=== PATIENT | female | born 1945 | race Caucasian/White ===

== ENCOUNTER 2016-08-12 18:57 | Inpatient (IN) | payer OTHER ==
--- NOTE | ~2016-08-12 | HP ---
History And Physical [place] [id number] [facility] [place]. [address] NAME: ANNE GAYLE : 47 STATUS : ADM Claudia PAT#: [id number] AGE: 71 ADM/REG DATE : 08/12/16 MR#: [id number] REPORT SERV DATE: 08/13/16 DICTATED BY: HUAN HARVEY DATE: 08/13/16 REPORT STATUS : Draft TRANSCRIBED BY: MODL DATE: 08/13/16 DATE OF ADMISSION: 08/12/2016 INDICATION FOR ADMISSION: Recurrent falls, inability to stand. HISTORY OF PRESENT ILLNESS: Mrs Gayle is a 71-year-old female, following chronic hemodialysis at [facility], dialyzing by left upper extremity AV graft. She has required hospitalizations in the past due to falls and injury, most recently sustaining a right humerus fracture in 04/2016. She lives alone and apparently continues to have falls at home and fell requiring her son to get her up. She subsequently was evaluated in the emergency room and was unable to stand. CT scan was performed, and she had no acute stroke. Cervical disk disease was noted with bulging at C3-C4, C4-C5, and C5-C6. She previously was seen in the emergency room on 08/10/2016 and had a nondisplaced left wrist fracture and seventh rib fracture. She is on numerous central acting medications including hydrocodone, oxycodone, gabapentin, Requip, and Robaxin. Presently, she was to be evaluated for home health, but she actually may need rehab therapy and/or placement as well as neurologic evaluation for possible cervical myelopathy. PAST MEDICAL HISTORY: 1. End-stage renal disease, dialyzing Sunday, Sunday, Sunday at [facility] by left upper extremity AV fistula. 2. Chronic obstructive pulmonary disease, on home O2. 3. Debilitation with recurrent falls. 4. Type 2 diabetes mellitus. 5. Diabetic neuropathy. 6. Coronary artery disease, status post PCI by Dr. Davis. 7. Hypertension. 8. Right humerus fracture. 9. Degenerative joint disease with chronic pain. 10.Gout. 11.Hyperlipidemia. 12.Anemia. 13.Obesity. SOCIAL HISTORY: The patient is lives alone but son lives nearby. History of former tobacco use, but no use at present. No history of alcohol or illicit drugs. FAMILY HISTORY: Positive for hypertension, coronary artery disease, and diabetes. No end- stage renal disease. HOME MEDICATIONS: Allopurinol, PhosLo, Nexium, Prozac, Neurontin, hydrocodone, Levemir insulin, Humalog insulin, magnesium oxide, Robaxin, midodrine, Remeron, Singulair, omega-3 fatty acid, oxycodone, Requip, Crestor, Demadex, and Atrovent inhaler. ALLERGIES: TO PHENERGAN, REGLAN, MORPHINE, AND ALBUTEROL. History And Physical [address] [address] NAME: ANNE GAYLE : 47 STATUS : ADM Claudia PAT#: [id number] AGE: 71 ADM/REG DATE : 08/12/16 MR#: [id number] REPORT SERV DATE: 08/13/16 DICTATED BY: HUAN HARVEY DATE: 08/13/16 REPORT STATUS : Draft TRANSCRIBED BY: LUCI DATE: 08/13/16 REVIEW OF SYSTEMS: HEENT: No change in visual acuity. No epistaxis. No otic infection. No pharyngitis. PULMONARY: Notes occasional shortness of breath, now having mildly productive cough. No wheezing. CARDIAC: No chest pain. No palpitations. No lower extremity edema. GI: No nausea, vomiting, or melena. : No gross hematuria. MUSCULOSKELETAL: Pain in both upper extremities, both lower extremities, and ribs. INTEGUMENT: No rash. No itching. NEUROLOGIC: No seizure activity. No lateralizing weakness. Presently, unable to stand and walk. Remainder of 12-point review of systems is negative. PHYSICAL EXAMINATION: VITAL SIGNS: Blood pressure 155/68, temperature 99.1, pulse 71, respiratory rate 19. GENERAL: Obese female, somewhat lethargic, but responding to questions appropriately. HEENT: Eyes, no scleral icterus. Pupils equal, reactive to light. Extraocular movement intact. Nares patent. No discharge. Throat, no injection. Mucous membranes moist. NECK: No thyromegaly, masses, or bruits. CHEST/LUNGS: Late crackles posteriorly. No wheezing. No dullness to percussion. CARDIAC: Regular rate and rhythm. 1/6 systolic ejection murmur. ABDOMEN: Obese, normoactive bowel sounds, nontender. No hepatosplenomegaly. BREAST/PELVIC/RECTAL: Not performed. EXTREMITIES: No significant lower extremity edema. No calf tenderness. Left upper extremity AV graft with good bruit and thrill. Left forearm cast noted. DERMIS: No rash. No skin lesions. NEUROLOGIC: Cranial nerves appear intact. No lateralizing weakness. MUSCULOSKELETAL: No deformity. IMPRESSION: 1. Recurrent falls, possibly medication effect versus cervical myelopathy. 2. End-stage renal disease, dialyzing Sunday, Sunday, and Sunday [facility] by left upper extremity AV fistula. 3. Chronic obstructive pulmonary disease, on home O2. 4. Obstructive sleep apnea, noncompliant with CPAP. 5. Type 2 diabetes mellitus. 6. Coronary artery disease with remote PCI by Dr. Davis. 7. Hypertension. 8. Left humerus fracture, currently with cast. 9. Degenerative joint disease for chronic pain. 10.Gout. 11.Neuropathy. 12.Hyperlipidemia. 13.Anemia. PLAN: 1. Decreased central acting medicines including Neurontin, Robaxin, and oxycodone. History And Physical [address] [address] NAME: ANNE GAYLE : 47 STATUS : ADM Claudia PAT#: [id number] AGE: 71 ADM/REG DATE : 08/12/16 MR#: [id number] REPORT SERV DATE: 08/13/16 DICTATED BY: HUAN HARVEY DATE: 08/13/16 REPORT STATUS : Draft TRANSCRIBED BY: LUCI DATE: 08/13/16 2. Hemodialysis on 08/14/2016. 3. 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 4. Consider neuro evaluation for possible cervical myelopathy. CG/JERMANL Huan Harvey M.D. / [id number] CC: Elly Dougherty JULIE H.
--- NOTE | ~2016-08-12 | CN ---
Consultation Report [facility] [address] [place]. [address] NAME: ANNE GAYLE : 47 STATUS : ADM Claudia PAT#: [id number] AGE: 71 ADM/REG DATE : 08/12/16 MR#: [id number] REPORT SERV DATE: 08/17/16 DICTATED BY: GALLO BLAND DATE: 08/16/16 REPORT STATUS : Draft TRANSCRIBED BY: MODL DATE: 08/16/16 INFECTIOUS DISEASE CONSULT DATE OF CONSULTATION: 08/16/2016 REASON FOR CONSULTATION: Fevers. HISTORY OF PRESENT ILLNESS: This is a 71-year-old female with end-stage renal disease, who has been on dialysis for about three years she says. She is dialyzed via a left upper extremity AV graft. The patient has had problems since April with recurrent falls and suffered a right humerus fracture in April after a fall. She says she feels weak and has episodic jerking type movements and is just unsteady. She was admitted again to [facility] on 08/12/2016 after being seen on 08/10/2016 after a fall at home and undergoing x-rays. However, she just continued to do poorly at home and was admitted through the ER. She also complains of some low back pain. The patient has had an extensive radiographic evaluation as outlined below. She initially had no fever and was not complaining of outpatient fevers or chills and her white blood cell count on admission was normal. About 48 hours after presenting to the emergency department, she spiked a fever to 102.8. Blood cultures were obtained and she was started on vancomycin. Those blood cultures remain negative 48 hours later. She had a maximum temperature yesterday of 99.6 and this morning of 100.1. In addition to just feeling fatigued, she does note a bit of a runny nose and an occasional cough. She has left-sided chest pain where she has had a rib fracture. She also notes episodic headache since her recent falls. She denies any sore throat. No nausea, vomiting, or diarrhea. Denies any problems with her IVs in her arms here in the hospital. No problems with her AV graft. The patient does still void a small amount of urine every day and says she does have some burning when she does, but that is no different than usual for her. PAST MEDICAL HISTORY: In addition to the above is notable for COPD, on home oxygen; diabetes with neuropathy; coronary artery disease; hypertension; gout; hyperlipidemia; osteoarthritis; and obesity. ALLERGIES OR INTOLERANCE: Include Phenergan, Reglan, morphine, and albuterol. PRESENT MEDICATIONS: In addition to vancomycin include Proventil, allopurinol, Lipitor, PhosLo, Prozac, Neurontin, Levemir, magnesium oxide, ProAmatine, Remeron, Asmanex, Singulair, Protonix, Promega capsules, Requip, Demadex. SOCIAL HISTORY: The patient lives alone. Her grandson is here in the room with her. No pets. . Past tobacco use, not now. Nondrinker. FAMILY HISTORY: Notable for hypertension, coronary artery disease, diabetes. REVIEW OF SYSTEMS: Consultation Report [address] [place]. [address] NAME: ANNE GAYLE : 47 STATUS : ADM Claudia PAT#: [id number] AGE: 71 ADM/REG DATE : 08/12/16 MR#: [id number] REPORT SERV DATE: 08/17/16 DICTATED BY: GALLO BLAND DATE: 08/16/16 REPORT STATUS : Draft TRANSCRIBED BY: LUCI DATE: 08/16/16 As outlined above. Otherwise, negative. PHYSICAL EXAMINATION: GENERAL: She weighs 106 kg. Presently afebrile. Blood pressure 195/79. Her pulse has ranged from 69 to 116. Respiratory rate is 18. GENERAL: She is alert, appropriate, in no acute distress. HEAD AND NECK: Oral cavity is clear. There is no thrush. Pharynx is without erythema. NECK: Supple. No adenopathy. LUNGS: Clear to auscultation anteriorly and laterally. CARDIAC: Regular rate and rhythm. Normal S1, S2. No murmur, gallop, or rub. ABDOMEN: Obese, soft. Bowel sound is reduced. Nontender. No masses appreciated. EXTREMITIES: The patient has a peripheral IV in the right forearm without phlebitis. Left upper arm has the AV graft covered by dressing, but no surrounding erythema. She does have ecchymosis of her left shoulder area. The left wrist and hand are in a cast. Legs show trace edema. Otherwise, unremarkable. LABORATORY STUDIES: White blood cell count 6.6, hemoglobin 9.2, platelets 116. She does have chronic thrombocytopenia. Albumin 2.3, alkaline phosphatase 230. Other liver function tests are normal. On 08/15/2016, urinalysis showed moderate leukocyte esterase, greater than 182 white blood cells many white blood cell clumps. Urine culture is pending. RADIOGRAPHIC STUDIES: 08/10/2016, left wrist x-ray showed nondisplaced fracture of the radial styloid. 08/10/2016, left hip x-ray negative, as was a pelvis x-ray. Rib series that day did show a nondisplaced fracture of the left anterolateral seventh rib. On admission, 08/12/2016, the patient had a CT scan without contrast of her brain, chest, abdomen, and pelvis. This showed no acute findings. The chest exam did reveal some increasing fibrosis or atelectasis changes in both lung bases compared to the April 2016 CT scan. Chest x-ray was repeated on 08/14/2016 and that is reviewed and there is some mild venous congestion along with some left perihilar and suprahilar atelectasis and possible atelectasis or even infiltrate in the right lung base. IMPRESSION: Etiology of the patient's fevers is unclear. Her maximum temperature in the last 24 hours is 100.1 after the spike to 102.8 on 08/14/2016. Of note, fevers were not present on admission, and she has had a normal white blood cell count and appears nontoxic. She does have a mild cough and some rhinorrhea and certainly may have a viral infection. I do not think she has influenza. Urinalysis shows pyuria, but the significance of this is always questionable in this situation in a patient on chronic dialysis. I do not think she has a bacterial pneumonia. She may be splinting some from the rib fracture pain, but there is not much to suggest pneumonia on exam or imaging studies. Her AV graft area looks fine on her inner left arm. PLAN: Consultation Report [address] [place]. [address] NAME: ANNE GAYLE : 47 STATUS : ADM Claudia PAT#: [id number] AGE: 71 ADM/REG DATE : 08/12/16 MR#: [id number] REPORT SERV DATE: 08/17/16 DICTATED BY: GALLO BLAND DATE: 08/16/16 REPORT STATUS : Draft TRANSCRIBED BY: MODL DATE: 08/16/16 1. Given the negative blood cultures at 48 hours, I will stop antibiotics, although she did get a dose of vancomycin already today. 2. We will follow her temperature curve overnight and reassess in the morning. 3. Check procalcitonin in the morning. 4. If her fevers continue, may go ahead and initiate antibiotics for what may be a positive urine culture, although again I am doubtful if that is the source. /MODL Gallo Bland M.D. / [id number] CC: Elly Dougherty M.D. Nathan Chamberlain, M.D.
--- NOTE | ~2016-08-12 | DS ---
Discharge Summary [facility] [address] [place]. [address] NAME: ANNE GAYLE : 47 STATUS : DIS IN PAT#: [id number] AGE: 71 ADM/REG DATE : 08/12/16 MR#: [id number] REPORT SERV DATE: 09/01/16 DICTATED BY: HUAN HARVEY DATE: 08/31/16 REPORT STATUS : Draft TRANSCRIBED BY: MODTorsten DATE: 08/31/16 Data Collection from hospitalization DISCHARGE DIAGNOSES: 1. Pneumonia. 2. Fever. 3. End-stage renal disease. 4. Diabetes mellitus. 5. Anemia. 6. Chronic obstructive pulmonary disease. 7. Decubitus. 8. Hypertension. 9. Diabetic neuropathy. 10.Coronary artery disease. 11.Obesity. 12.Hyperlipidemia. 13.Gout. 14.Degenerative joint disease with chronic pain. 15.Former tobacco use. CONSULTATIONS: Dr. Boyd Bland, Dr. Ernie Antonio. PROCEDURES PERFORMED: 1. CT scan of the brain without contrast, 08/12/2016. 2. CT scan of the cervical spine without contrast, 08/12/2016. 3. CT scan of the chest without contrast and CT scan of the abdomen and pelvis without contrast, 08/12/2016. DISCHARGE MEDICATIONS: Zyloprim 100 mg daily, PhosLo 1334 mg with meals, Prozac 20 mg twice a day, Neurontin 600 mg three times a day, Levemir 28 units subcutaneously twice a day, NovoLog injection insulin 28 units subcutaneously before breakfast, NovoLog injection insulin as instructed, Mag-Ox 400 mg every morning, Remeron 15 mg at bedtime, Singulair 10 mg at bedtime, fish oil 2000 mg twice a day, Nexium 40 mg every morning, Requip 0.5 mg at bedtime, Demadex 100 mg twice a day, ProAmatine 5 mg three times a day, Levemir 20 units subcutaneously at bedtime, Endocet one tablet twice a day as needed, Crestor 10 mg at bedtime, Robaxin 500 mg every eight hours as needed, DuoNeb every six hours as instructed. CONDITION AT DISCHARGE: Stable. DISPOSITION: The patient was discharged to [facility] on a diabetic/renal diet with activities as instructed. HOSPITAL COURSE: This is a 71-year-old female, who undergoes hemodialysis via a left upper extremity AV graft. She had required hospitalizations in the past due to falls and injury, most recently sustaining a right humerus fracture in April of 2016. She lives alone and apparently continued to have falls at home and fell requiring her son to get her up. She was subsequently evaluated in the emergency room and was unable to stand. CT scan of the brain without contrast revealed no acute stroke. A CT scan of the cervical spine without Discharge Summary [address] [place]. [address] NAME: ANNE GAYLE : 47 STATUS : DIS IN PAT#: [id number] AGE: 71 ADM/REG DATE : 08/12/16 MR#: [id number] REPORT SERV DATE: 09/01/16 DICTATED BY: HUAN HARVEY DATE: 08/31/16 REPORT STATUS : Draft TRANSCRIBED BY: LUCI DATE: 08/31/[address] scan of the chest without contrast as well as a CT scan of the abdomen and pelvis without contrast were performed. She was found to have bulging at C3-4, C4-C5, and C5-C6. She was previously seen in the emergency room on 08/10/2016 and had a nondisplaced left wrist fracture and seventh rib fracture. She is on numerous central acting medications, including hydrocodone, oxycodone, gabapentin, Requip, and Robaxin. Presently, she was to be evaluated for home health, but it was felt that she may need rehab therapy and/or placement as well as neurologic evaluation for possible cervical myelopathy. She was admitted to the hospital at this time for further evaluation and treatment. Upon admission, her central acting medications were going to be decreased. Hemodialysis therapy was going to be performed. The following day, hemodialysis therapy was performed. She was in no acute distress. O2 saturation was 93% on 2 L. Her Neurontin dose was decreased. Supportive care continued. Hydrocodone and Robaxin were held. She underwent diabetes education. She was evaluated by Physical Therapy. On 08/15/2016, she was seen by Dr. Ernie Antonio regarding her recent falls and possible cervical myelopathy. The patient denied any neck pain at this time. She denied any numbness or tingling in the upper extremities. She does have a history of low back pain. CT scan had revealed some degenerative changes with [id number] stenosis. It was felt that she could have myelopathy, but overall, she was not classic in terms of symptomatology. It was felt that the best plan maybe to have physical therapy see her and then we would see how that goes and then discuss potentially an MRI as needed. The patient remained on vancomycin for now. Supportive care continued. On the , cultures were negative thus far. Hemodialysis therapy was performed. Vancomycin was continued. She was seen by Dr. Boyd Bland regarding fevers. Her blood cultures had remained negative at 48 hours. Earlier that morning, she had a T-max of 100.1. In addition to feeling fatigued, she did have a bit of a runny nose and an occasional cough. On 08/10/2016, a left wrist x-ray had shown nondisplaced fracture of the radial styloid. She had also been found to have a nondisplaced fracture of the left anterolateral seventh rib. The etiology of her fever was unclear. She has had a fever spike of 102.8 on 08/14/2016. Her maximum temperature in the last 24 hours was 100.1. She did not believe she had influenza. She did not think that she had bacterial pneumonia. The AV graft area looked fine on the inner left arm. Vancomycin was going to be stopped. She has had negative blood cultures at 48 hours. We would follow her temperature curve overnight and reassess the following morning. Procalcitonin level was going to be obtained. On the , her T-max was 100.3. Procalcitonin level was 14.99. She said she felt a little better. She did have an increased productive cough. Repeat chest x-ray was going to be performed. Sputum Gram stain and culture would be obtained. Cefepime was started. She was still receiving vancomycin. On 08/18/2016, hemodialysis therapy was performed. Blood cultures remained negative. She was afebrile. White count was 6.7. Cefepime was continued. Her temperature curve was decreasing. Next day, procalcitonin level was 15.8. She remained afebrile. It was felt that her fevers had resolved. She seemed to have responded to cefepime, this was continued. Over the next couple of days, she continued to progress. O2 saturation was 99% on 3 L. She complained of some episodes of jerking-like movements. She seemed to be breathing better. Her cough had resolved. Discharge planning was performed. Hemodialysis therapy continued. On 08/22/2016, she remained afebrile. Procalcitonin level from the day previously was 10.85. She was feeling better overall. She did have some weakness. She had improved Discharge Summary [address] [place]. [address] NAME: ANNE GAYLE : 47 STATUS : DIS IN PAT#: [id number] AGE: 71 ADM/REG DATE : 08/12/16 MR#: [id number] REPORT SERV DATE: 09/01/16 DICTATED BY: HUAN HARVEY DATE: 08/31/16 REPORT STATUS : Draft TRANSCRIBED BY: LUCI DATE: 08/31/16 clinically. Discharge instructions were given. Due to her improved and stable condition, she was discharged to [facility] with the above-stated instructions. Information collected by: Renate Connor I submit the above information as my discharge summary. TG/LUCI Huan Harvey M.D. / [id number] CC: Elly Dougherty M.D. Hal Hill, M.D. [facility] Ernie Antonio II, M.D.
--- NOTE | ~2016-08-12 | CN ---
Consultation Report [address] [place]. [address] NAME: ANNE GAYLE : 47 STATUS : ADM Claudia PAT#: [id number] AGE: 71 ADM/REG DATE : 08/12/16 MR#: [id number] REPORT SERV DATE: 08/16/16 DICTATED BY: BETH ANTONIO II DATE: 08/15/16 REPORT STATUS : Draft TRANSCRIBED BY: LUCI DATE: 08/15/16 CONSULTATION DATE OF CONSULTATION: 08/15/2016 REASON FOR CONSULTATION: Recent falls. HISTORY OF PRESENT ILLNESS: A friendly female, who I am asked to see by Dr. Jeronimo for possible cervical myelopathy. The patient denies any neck pain but does report some falling. She denies any numbness and tingling in the upper extremities. She does have a positive history for low back pain. PAST MEDICAL HISTORY: Hypertension, dialysis, kidney disease, uncontrolled diabetes. REVIEW OF SYSTEMS: Please see the ER triage sheet dated 08/12/2016. I have reviewed it and agree with it. MEDICATIONS: Please see the MAR. PHYSICAL EXAMINATION: GENERAL: Reveals a female, in no acute distress. She is awake, alert, and oriented. NECK: Supple. CHEST: Reveals no stridor on inspiration or expiration. CARDIOVASCULAR: Regular rate and rhythm when I palpate the radial pulse. ABDOMEN: Obese. NEUROLOGIC: She has a negative Kortney's sign. She has no hyperreflexia. Her neck range of motion is good. Neurologically, she is 4/5 in the upper and lower extremities. IMAGING: CT scan reveals some degenerative changes with cabh-hj-mcjfygng stenosis. IMPRESSION AND PLAN: History of recent falls, etiology uncertain. She could have myelopathy but overall, she is not classic in terms of symptomatology. I think the best plan is to have Physical therapy see her and then, we will see how that goes and then discuss potentially an MRI if needed. ALANIS/LUCI Beth Antonio II, M.D. / [id number] Consultation Report [address] [place]. [address] NAME: ANNE GAYLE : 47 STATUS : ADM Claudia PAT#: [id number] AGE: 71 ADM/REG DATE : 08/12/16 MR#: [id number] REPORT SERV DATE: 08/16/16 DICTATED BY: BETH ANTONIO II DATE: 08/15/16 REPORT STATUS : Draft TRANSCRIBED BY: MODL DATE: 08/15/16 CC: Elly Douhgerty M.D.
[~2016-08-12 18:57] MED LIST: ATROVENT HFA17 MCG INH; BENTYL20 PO; CALCIUM CARBONATE; COREG25 PO; COREG3 PO; CRESTOR; CRESTOR20 MG PO; CRESTOR40 MG PO; DEMA100 PO; DITRO5 PO; DITROXL5 PO; ETODOLAC400 MG OR; FLONASE NAS; FLOVENT44 INH; HUMALOG; HUMALOG SC; HUMALOGPEN SC; Humalog Inj SC; KAYEXUD PO; KDUR10 PO; L40 PO; L80 PO; LEVEMFLXPN SC; LEVEMIR SC; LISINOPRIL40 MG PO; LOFIB160 PO; LOFIBRA160 MG PO; LORT7 PO; LOVAZA1 GM PO; MAG OXIDE; MAGOX4 PO; MCZ125 PO; METHOC500B PO; MIX; NEBULIZER SOLUTION INH; NEUR300 PO; NEUR600 PO; NEXIUM40 PO; NORCO1 TA2 PO; OTC MUSCLE RUB TOP; PCET PO; PERCOCET1 TA4 PO; PHOSLO PO; PLAVIX; PLAVIX PO; PROLIA60 MG/1 ML SC; PROZAC PO; QVAR 80 MCG80 MCG INH; REM15 PO; REQUIP5 PO; SINGULAIR1 PO; SODBICAR10 PO; SONATA10 MG PO; TRILIPIX135 MG PO; VICODIN ES1 TAB PO; Z100 PO; ZANAFLEX2 MG PO; ZANTAC300 MG PO; ZITHROMAX500 MG PO; ZOCOR40 PO; [UNRECOGNIZED DRUG - OTHER]; [UNRECOGNIZED DRUG - REMARK]; [UNRECOGNIZED DRUG - REMARK] TOP
[2016-08-12 20:32] LABS: BASOPHILS 0.2 %; BASOPHILS ABSOLUTE 0.01 10/3/uL (0.0-0.16); EOSINOPHILS 0.4 %; EOSINOPHILS ABSOLUTE 0.02 10/3/uL (0.0-0.53); HEMATOCRIT 30.1 % (36.0-48.0); IMMATURE GRANULOCYTES 0.2 %; IMMATURE GRANULOCYTES ABSOLUTE 0.01 10/3/uL (0.0-0.11); LYMPHOCYTES 21.2 %; MANUAL DIFF NO %; MEAN CORPUS HGB CONC 33.2 g/dL (32.0-36.0); MEAN CORPUSCULAR HEMOGLOB 35.1 pg (26.0-34.0); MEAN CORPUSCULAR VOLUME 105.6 fL (80-100); MEAN PLATELET VOLUME 10.6 fL (9.2-13.0); MONOCYTES 5.7 %; MONOCYTES ABSOLUTE 0.27 10/3/uL (0.21-1.20); NEUTROPHILS 72.3 %; NEUTROPHILS ABSOLUTE 3.41 10/3/uL (2.02-8.40); PLATELET COUNT 117 10/3/uL (150-400); RED CELL COUNT 2.85 10/6/uL (4.0-5.6); WHITE BLOOD CELLS 4.7 10/3/uL (4.5-10.5)
[2016-08-12 20:46] LABS: A/G RATIO 0.8 (0.7-1.9); ALBUMIN 2.8 G/DL (3.5-5.0); CHLORIDE, SERUM 92 MMOL/L (96-112); CO2 (CARBON DIOXIDE) 28 MMOL/L (24-34); GLOBULIN 3.7 G/DL (2.5-4.1); POTASSIUM, SERUM 4.8 MMOL/L (3.5-5.3); SGOT(AST) 7 U/L (5-40); SGPT(ALT) 14 U/L (5-65); SODIUM, SERUM 131 MMOL/L (135-148); TOTAL BILIRUBIN 0.4 MG/DL (0-1.2); TOTAL PROTEIN 6.5 G/DL (6.0-8.5)
[2016-08-12 20:47] LABS: ALKALINE PHOSPHATASE 230 U/L (45-117); BUN (BLOOD UREA NITROGEN) 38 MG/DL (6-23); CREATININE 5.26 MG/DL (0.55-1.02); GFR AFRICAN AMERICAN 9 ML/MIN (>=60); GFR NON AFRICAN AMERICAN 8 ML/MIN (>=60); GLUCOSE, SERUM 667 MG/DL (60-99)
[2016-08-12] MEDS ORDERED: ENDOCET1 TAB PO (21:09)
[2016-08-12] MEDS ORDERED: Z100 PO (21:10)
[2016-08-12] MEDS ORDERED: FISH-EPA1000 MG PO (21:11)
[2016-08-12] MEDS ORDERED: CRESTOR10 PO (21:11)
[2016-08-12] MEDS ORDERED: MAGOX4 PO ×2 (21:11→21:20)
[2016-08-12] MEDS ORDERED: PHOSLO PO (21:12)
[2016-08-12] MEDS ORDERED: NEXIUM40 PO (21:12)
[2016-08-12] MEDS ORDERED: REM15 PO (21:12)
[2016-08-12] MEDS ORDERED: METHOC500B PO (21:13)
[2016-08-12] MEDS ORDERED: NEUR600 PO (21:13)
[2016-08-12] MEDS ORDERED: PROZAC PO (21:14)
[2016-08-12] MEDS ORDERED: SINGULAIR1 PO (21:14)
[2016-08-12] MEDS ORDERED: PROAMAT5 PO (21:14)
[2016-08-12] MEDS ORDERED: REQUIP5 PO (21:14)
[2016-08-12] MEDS ORDERED: LEVEMIR SC (21:15)
[2016-08-12] MEDS ORDERED: HUMALOG SC (21:16)
[2016-08-12] MEDS ORDERED: NORCO1 TA2 PO (21:19)
[2016-08-12] MEDS ORDERED: DEMA100 PO (21:20)
[2016-08-12] MEDS ORDERED: NEBULIZER SOLN INH (21:22)
[2016-08-12] MEDS ORDERED: INHALER INH (21:22)
[2016-08-13 05:24] LABS: BASOPHILS 0.2 %; BASOPHILS ABSOLUTE 0.01 10/3/uL (0.0-0.16); EOSINOPHILS 0.9 %; EOSINOPHILS ABSOLUTE 0.05 10/3/uL (0.0-0.53); HEMATOCRIT 29.1 % (36.0-48.0); HEMOGLOBIN 9.9 g/dL (12.0-16.0); IMMATURE GRANULOCYTES 0.3 %; IMMATURE GRANULOCYTES ABSOLUTE 0.02 10/3/uL (0.0-0.11); LYMPHOCYTES 17.5 %; LYMPHOCYTES ABSOLUTE 1.02 10/3/uL (0.67-4.30); MANUAL DIFF NO %; MEAN CORPUSCULAR HEMOGLOB 35.6 pg (26.0-34.0); MEAN CORPUSCULAR VOLUME 104.7 fL (80-100); MEAN PLATELET VOLUME 10.5 fL (9.2-13.0); MONOCYTES 4.6 %; MONOCYTES ABSOLUTE 0.27 10/3/uL (0.21-1.20); NEUTROPHILS 76.5 %; NEUTROPHILS ABSOLUTE 4.46 10/3/uL (2.02-8.40); PLATELET COUNT 114 10/3/uL (150-400); RBC DISTRIBUTION WIDTH 13.9 % (12.0-16.0); RED CELL COUNT 2.78 10/6/uL (4.0-5.6); WHITE BLOOD CELLS 5.8 10/3/uL (4.5-10.5)
[2016-08-13 05:40] LABS: ALBUMIN 2.7 G/DL (3.5-5.0); CALCIUM, SERUM 8.4 MG/DL (8.5-10.4); CHLORIDE, SERUM 94 MMOL/L (96-112); CO2 (CARBON DIOXIDE) 25 MMOL/L (24-34); CREATININE 5.54 MG/DL (0.55-1.02); GFR AFRICAN AMERICAN 8 ML/MIN (>=60); GFR NON AFRICAN AMERICAN 7 ML/MIN (>=60); PHOSPHORUS, SERUM 3.8 MG/DL (2.5-4.5); POTASSIUM, SERUM 4.2 MMOL/L (3.5-5.3); SODIUM, SERUM 133 MMOL/L (135-148)
[2016-08-13 05:43] LABS: BUN (BLOOD UREA NITROGEN) 42 MG/DL (6-23)
[2016-08-13 05:44] LABS: GLUCOSE, SERUM 381 MG/DL (60-99)
[2016-08-14 04:33] LABS: BASOPHILS 0.2 %; BASOPHILS ABSOLUTE 0.01 10/3/uL (0.0-0.16); EOSINOPHILS 1.5 %; EOSINOPHILS ABSOLUTE 0.09 10/3/uL (0.0-0.53); HEMATOCRIT 29.9 % (36.0-48.0); IMMATURE GRANULOCYTES 0.3 %; IMMATURE GRANULOCYTES ABSOLUTE 0.02 10/3/uL (0.0-0.11); LYMPHOCYTES 20.7 %; LYMPHOCYTES ABSOLUTE 1.22 10/3/uL (0.67-4.30); MEAN CORPUS HGB CONC 33.4 g/dL (32.0-36.0); MEAN CORPUSCULAR VOLUME 104.5 fL (80-100); MEAN PLATELET VOLUME 10.9 fL (9.2-13.0); MONOCYTES 6.8 %; NEUTROPHILS 70.5 %; NEUTROPHILS ABSOLUTE 4.15 10/3/uL (2.02-8.40); PLATELET COUNT 117 10/3/uL (150-400); RBC DISTRIBUTION WIDTH 13.9 % (12.0-16.0); RED CELL COUNT 2.86 10/6/uL (4.0-5.6); WHITE BLOOD CELLS 5.9 10/3/uL (4.5-10.5)
[2016-08-14 04:41] LABS: MANUAL DIFF NO %
[2016-08-14 04:48] LABS: ALBUMIN 2.6 G/DL (3.5-5.0); BUN (BLOOD UREA NITROGEN) 54 MG/DL (6-23); CALCIUM, SERUM 8.9 MG/DL (8.5-10.4); CHLORIDE, SERUM 93 MMOL/L (96-112); CO2 (CARBON DIOXIDE) 24 MMOL/L (24-34); CREATININE 6.61 MG/DL (0.55-1.02); GFR AFRICAN AMERICAN 7 ML/MIN (>=60); GFR NON AFRICAN AMERICAN 6 ML/MIN (>=60); GLUCOSE, SERUM 134 MG/DL (60-99); SODIUM, SERUM 131 MMOL/L (135-148)
[2016-08-15 17:18] LABS: ASCORBIC ACID (UR NOT ORDER) NEG (NEG); BILIRUBIN, URINE NEGATIVE (NEG); KETONE, URINE TRACE MG/DL (NEG); LEUKOCYTE ESTERASE(NOT OR MOD (NEG)
[2016-08-15 17:21] LABS: WBC (NOT ORDERED) (RFLEX) > 182 (0-5)
[2016-08-16 04:03] LABS: BASOPHILS 0.2 %; BASOPHILS ABSOLUTE 0.01 10/3/uL (0.0-0.16); EOSINOPHILS 1.4 %; EOSINOPHILS ABSOLUTE 0.09 10/3/uL (0.0-0.53); HEMATOCRIT 27.3 % (36.0-48.0); HEMOGLOBIN 9.2 g/dL (12.0-16.0); LYMPHOCYTES 17.5 %; LYMPHOCYTES ABSOLUTE 1.15 10/3/uL (0.67-4.30); MANUAL DIFF NO %; MEAN CORPUS HGB CONC 33.7 g/dL (32.0-36.0); MEAN CORPUSCULAR HEMOGLOB 34.8 pg (26.0-34.0); MEAN CORPUSCULAR VOLUME 103.4 fL (80-100); MONOCYTES 7.6 %; NEUTROPHILS 73.3 %; NEUTROPHILS ABSOLUTE 4.82 10/3/uL (2.02-8.40); PLATELET COUNT 116 10/3/uL (150-400); RBC DISTRIBUTION WIDTH 13.8 % (12.0-16.0); RED CELL COUNT 2.64 10/6/uL (4.0-5.6); WHITE BLOOD CELLS 6.6 10/3/uL (4.5-10.5)
[2016-08-16 04:16] LABS: ALBUMIN 2.3 G/DL (3.5-5.0); BUN (BLOOD UREA NITROGEN) 52 MG/DL (6-23); CALCIUM, SERUM 8.6 MG/DL (8.5-10.4); CHLORIDE, SERUM 95 MMOL/L (96-112); CO2 (CARBON DIOXIDE) 27 MMOL/L (24-34); GFR AFRICAN AMERICAN 7 ML/MIN (>=60); GFR NON AFRICAN AMERICAN 6 ML/MIN (>=60); PHOSPHORUS, SERUM 4.1 MG/DL (2.5-4.5); POTASSIUM, SERUM 4.4 MMOL/L (3.5-5.3); SODIUM, SERUM 132 MMOL/L (135-148)
[2016-08-16 04:22] LABS: GLUCOSE, SERUM 238 MG/DL (60-99)
[2016-08-18 08:23] LABS: BASOPHILS 0.1 %; BASOPHILS ABSOLUTE 0.01 10/3/uL (0.0-0.16); EOSINOPHILS 1.2 %; EOSINOPHILS ABSOLUTE 0.08 10/3/uL (0.0-0.53); HEMATOCRIT 27.7 % (36.0-48.0); HEMOGLOBIN 9.2 g/dL (12.0-16.0); IMMATURE GRANULOCYTES 0.6 %; IMMATURE GRANULOCYTES ABSOLUTE 0.04 10/3/uL (0.0-0.11); LYMPHOCYTES 17.4 %; LYMPHOCYTES ABSOLUTE 1.17 10/3/uL (0.67-4.30); MEAN CORPUS HGB CONC 33.2 g/dL (32.0-36.0); MEAN CORPUSCULAR HEMOGLOB 34.5 pg (26.0-34.0); MEAN CORPUSCULAR VOLUME 103.7 fL (80-100); MEAN PLATELET VOLUME 10.2 fL (9.2-13.0); MONOCYTES ABSOLUTE 0.54 10/3/uL (0.21-1.20); NEUTROPHILS 72.7 %; NEUTROPHILS ABSOLUTE 4.87 10/3/uL (2.02-8.40); PLATELET COUNT 136 10/3/uL (150-400); RBC DISTRIBUTION WIDTH 13.4 % (12.0-16.0); RED CELL COUNT 2.67 10/6/uL (4.0-5.6); WHITE BLOOD CELLS 6.7 10/3/uL (4.5-10.5)
[2016-08-18 08:24] LABS: MANUAL DIFF NO %
[2016-08-18 08:35] LABS: BUN (BLOOD UREA NITROGEN) 49 MG/DL (6-23); CALCIUM, SERUM 8.9 MG/DL (8.5-10.4); CHLORIDE, SERUM 98 MMOL/L (96-112); CO2 (CARBON DIOXIDE) 25 MMOL/L (24-34); GFR AFRICAN AMERICAN 8 ML/MIN (>=60); GFR NON AFRICAN AMERICAN 7 ML/MIN (>=60); GLUCOSE, SERUM 186 MG/DL (60-99); PHOSPHORUS, SERUM 3.6 MG/DL (2.5-4.5); POTASSIUM, SERUM 4.1 MMOL/L (3.5-5.3); SODIUM, SERUM 134 MMOL/L (135-148)
[2016-08-21 06:24] LABS: ALBUMIN 1.9 G/DL (3.5-5.0); BASOPHILS 0.2 %; BASOPHILS ABSOLUTE 0.01 10/3/uL (0.0-0.16); BUN (BLOOD UREA NITROGEN) 61 MG/DL (6-23); CALCIUM, SERUM 9.3 MG/DL (8.5-10.4); CHLORIDE, SERUM 90 MMOL/L (96-112); CO2 (CARBON DIOXIDE) 23 MMOL/L (24-34); CREATININE 6.49 MG/DL (0.55-1.02); EOSINOPHILS 1.9 %; EOSINOPHILS ABSOLUTE 0.11 10/3/uL (0.0-0.53); GFR AFRICAN AMERICAN 7 ML/MIN (>=60); GFR NON AFRICAN AMERICAN 6 ML/MIN (>=60); GLUCOSE, SERUM 187 MG/DL (60-99); HEMATOCRIT 27.3 % (36.0-48.0); HEMOGLOBIN 8.9 g/dL (12.0-16.0); IMMATURE GRANULOCYTES 1.9 %; IMMATURE GRANULOCYTES ABSOLUTE 0.11 10/3/uL (0.0-0.11); LYMPHOCYTES 24.8 %; LYMPHOCYTES ABSOLUTE 1.43 10/3/uL (0.67-4.30); MEAN CORPUS HGB CONC 32.6 g/dL (32.0-36.0); MEAN CORPUSCULAR HEMOGLOB 33.5 pg (26.0-34.0); MEAN CORPUSCULAR VOLUME 102.6 fL (80-100); MONOCYTES 7.1 %; MONOCYTES ABSOLUTE 0.41 10/3/uL (0.21-1.20); NEUTROPHILS 64.1 %; PHOSPHORUS, SERUM 3.5 MG/DL (2.5-4.5); PLATELET COUNT 154 10/3/uL (150-400); POTASSIUM, SERUM 4.5 MMOL/L (3.5-5.3); RBC DISTRIBUTION WIDTH 13.5 % (12.0-16.0); RED CELL COUNT 2.66 10/6/uL (4.0-5.6); SODIUM, SERUM 127 MMOL/L (135-148); WHITE BLOOD CELLS 5.8 10/3/uL (4.5-10.5)
[2016-08-21 06:25] LABS: MANUAL DIFF NO %
[2016-08-21 10:45] LABS: PROCALCITONIN 10.85 ng/mL (<0.5)
[2016-08-22 05:27] LABS: HEMATOCRIT 26.3 % (36.0-48.0); HEMOGLOBIN 8.6 g/dL (12.0-16.0); MANUAL DIFF YES %; MEAN CORPUS HGB CONC 32.7 g/dL (32.0-36.0); MEAN PLATELET VOLUME 10.2 fL (9.2-13.0); PLATELET COUNT 175 10/3/uL (150-400); RBC DISTRIBUTION WIDTH 13.5 % (12.0-16.0); RED CELL COUNT 2.53 10/6/uL (4.0-5.6); WHITE BLOOD CELLS 5.7 10/3/uL (4.5-10.5)
[2016-08-22 05:45] LABS: ALBUMIN 2.2 G/DL (3.5-5.0); CALCIUM, SERUM 8.9 MG/DL (8.5-10.4); GFR AFRICAN AMERICAN 12 ML/MIN (>=60); GFR NON AFRICAN AMERICAN 10 ML/MIN (>=60); GLUCOSE, SERUM 202 MG/DL (60-99); PHOSPHORUS, SERUM 2.7 MG/DL (2.5-4.5)
[2016-08-22 05:53] LABS: BUN (BLOOD UREA NITROGEN) 31 MG/DL (6-23); CHLORIDE, SERUM 102 MMOL/L (96-112); CO2 (CARBON DIOXIDE) 29 MMOL/L (24-34); CREATININE 4.11 MG/DL (0.55-1.02); SODIUM, SERUM 138 MMOL/L (135-148)
[2016-08-22 06:08] LABS: BAND NEUTROPHILS 1 %; EOSINOPHILS 3 %; EOSINOPHILS ABSOLUTE (CALC) 0.17 10/3/uL (0.0-0.53); LYMPHOCYTES 18 %; LYMPHOCYTES ABSOLUTE (CALC) 1.03 10/3/uL (0.67-4.30); MACROCYTES 1+ (5-10/OIF) (0-5/OIF); MONOCYTES 4 %; MONOCYTES ABSOLUTE (CALC) 0.23 10/3/uL (0.21-1.20); NEUTROPHILS ABSOLUTE (CALC) 4.28 10/3/uL (2.02-8.40); PLATELET ESTIMATE ADQ (ADEQUATE); SEGMENTED NEUTROPHIL (0) 74 %; TOTAL NUCLEATED CELLS 100
== END 2016-08-22 18:42 | DRG 190 ==
LOC: ER 18:57 → CDU1 21:33 → 2SO 08-17 12:50
PROVIDERS: Emergency Medicine; Internal Medicine; Internal Medicine Nephrology
PROC: 5A1D60Z (ICD-10-PCS; principal; 2016-08-14)
DX: J44.0 Chronic obstructive pulmonary disease with (acute) lower respiratory infection (principal); J96.21 Acute and chronic respiratory failure with hypoxia; J18.9 Pneumonia, unspecified organism; N18.6 End stage renal disease; E11.42 Type 2 diabetes mellitus with diabetic polyneuropathy; M50.00 Cervical disc disorder with myelopathy, unspecified cervical region; I12.0 Hypertensive chronic kidney disease with stage 5 chronic kidney disease or end stage renal disease; Z99.81 Dependence on supplemental oxygen; D64.9 Anemia, unspecified; S52.515A Nondisplaced fracture of left radial styloid process, initial encounter for closed fracture; E87.1 Hypo-osmolality and hyponatremia; G47.33 Obstructive sleep apnea (adult) (pediatric); I25.10 Atherosclerotic heart disease of native coronary artery without angina pectoris; M10.9 Gout, unspecified; E78.5 Hyperlipidemia, unspecified; W19.XXXA Unspecified fall, initial encounter; E66.9 Obesity, unspecified; L89.90 Pressure ulcer of unspecified site, unspecified stage; Y92.009 Unspecified place in unspecified non-institutional (private) residence as the place of occurrence of the external cause; Z99.2 Dependence on renal dialysis; Z91.19 Patient's noncompliance with other medical treatment and regimen; Z88.5 Allergy status to narcotic agent; Z88.8 Allergy status to other drugs, medicaments and biological substances; Z82.49 Family history of ischemic heart disease and other diseases of the circulatory system; Z83.3 Family history of diabetes mellitus; S73.102A Unspecified sprain of left hip, initial encounter; Z79.4 Long term (current) use of insulin
CPT/HCPCS: 70450; 71010; 71101; 71250; 72125; 72170; 73110-LT; 73502-LT; 74176; 80053; 80069; 81001; 82962; 83735; 83880; 84145; 85025; 87040; 87070; 87086; 87205; 94640; 96374; 97110-GP; 97162-GP; 97530-GP; 99284; 99291; A9270-GY; G0257; J0692; J0885; J3370; P9047